=== PATIENT | female | born 1980 | race Caucasian/White ===

== ENCOUNTER 2023-09-02 09:23 | Outpatient (CLI) | payer OTHER, SELFPAY | END 2023-09-02 09:24 | disposition home or self-care (01) | PROVIDERS: Visit Provider Obstetrics & Gynecology | DX: R00.2 Palpitations (principal) | CPT/HCPCS: 80048; 82670; 83001; 84439; 84443 ==

== ENCOUNTER 2023-09-27 14:45 | Outpatient (CLI) | payer OTHER, SELFPAY | END 2023-09-27 14:46 | disposition home or self-care (01) | LOC: NFLDREF 10-17 15:45 | PROVIDERS: Visit Provider Obstetrics & Gynecology | DX: R79.89 Other specified abnormal findings of blood chemistry (principal) | CPT/HCPCS: 84443 ==